=== PATIENT | male | born 1950 | race Caucasian/White ===

== ENCOUNTER → 2017-04-26 10:37 | Outpatient (CLI) | payer MEDICARE, SELFPAY ==
[2017-04-26 11:10] LABS: Basophils # 0.1 K/mm3 (0-0.2); Basophils % 0.8 % (0.1-2.0); Eosinophils # 0.2 K/mm3 (0.0-0.4); Eosinophils % 2.8 % (0.1-12.0); Hematocrit 46.7 % (42.0-52.0); Hemoglobin 15.1 g/dL (14.1-18.0); Lymphocytes # 2.2 K/mm3 (0.7-4.5); Lymphocytes % 30.8 K/mm3 (10-50); Mean Corpuscular HGB Conc 32.3 g/dL (31.8-35.4); Mean Corpuscular Hemoglobin 29.9 pg (27.0-31.2); Mean Corpuscular Volume 92.5 fl (80-94); Mean Platelet Volume 7.2 fl (7.4-10.4); Monocytes # 0.4 K/mm3 (0.1-1.0); Monocytes % 5.7 % (1.7-9.3); Neutrophils # 4.3 K/mm3 (1.8-7.8); Neutrophils % 59.9 % (37.0-80.0); Platelet Count 256 K/mm3 (142-424); Red Blood Count 5.05 M/mm3 (4.60-6.20); Red Cell Distribution Width 12.9 % (11.5-17.5); White Blood Count 7.2 K/mm3 (4.8-10.8)
[2017-04-26 12:05] LABS: Alanine Aminotransferase 27 U/L (12-78); Albumin/Globulin Ratio 1.4 (1.1-1.8); Alkaline Phosphatase 93 U/L (46-116); Aspartate Amino Transferase 19 U/L (15-37); Bilirubin,Total 0.2 mg/dL (0.2-1.0); Blood Urea Nitrogen 14 mg/dL (7-18); Calcium 9.1 mg/dL (8.5-10.1); Carbon Dioxide 26 mmol/L (21.0-32.0); Chloride 104 mmol/L (98-107); Chol/HDL Ratio 4.8 (1-3.5); Cholesterol 133 mg/dL (140-200); Estimated Glomerular Filt Rate 67 ml/min (>60); GFR (African American) 82 ML/MIN (>60); Globulin 2.8 gm/dl (1.3-3.2); Glucose 177 mg/dL (74-106); HDL Cholesterol 28 mg/dL (27-67); LDL Cholesterol 49 mg/dL (0-130); Sodium 140 mmol/L (136-145); Total Protein,Serum 6.8 gm/dL (6.4-8.2); Triglycerides 282 mg/dL (30-200); VLDL Cholesterol 56 mg/dL (0-40)
[2017-04-26 12:07] LABS: Hemoglobin A1C 8.5 % (0.0-7.0)
== END ==
PROVIDERS: PCP Internal Medicine Adolescent Medicine; Visit Provider Internal Medicine Adolescent Medicine
DX: I25.10 Atherosclerotic heart disease of native coronary artery without angina pectoris (principal); E11.65 Type 2 diabetes mellitus with hyperglycemia; E78.5 Hyperlipidemia, unspecified
CPT/HCPCS: 36415; 80053; 80061; 83036; 85025

== ENCOUNTER → 2017-07-26 11:10 | Outpatient (CLI) | payer MEDICARE, SELFPAY ==
[2017-07-26 11:41] LABS: Basophils # 0.1 K/mm3 (0-0.2); Basophils % 0.8 % (0.1-2.0); Eosinophils # 0.2 K/mm3 (0.0-0.4); Hematocrit 51.3 % (42.0-52.0); Hemoglobin 16.7 g/dL (14.1-18.0); Lymphocytes % 35.3 K/mm3 (10-50); Mean Corpuscular HGB Conc 32.5 g/dL (31.8-35.4); Mean Corpuscular Hemoglobin 30.7 pg (27.0-31.2); Mean Corpuscular Volume 94.5 fl (80-94); Mean Platelet Volume 7.2 fl (7.4-10.4); Monocytes # 0.3 K/mm3 (0.1-1.0); Monocytes % 5.9 % (1.7-9.3); Platelet Count 234 K/mm3 (142-424); Red Blood Count 5.43 M/mm3 (4.60-6.20); Red Cell Distribution Width 12.8 % (11.5-17.5); White Blood Count 5.6 K/mm3 (4.8-10.8)
[2017-07-26 13:51] LABS: Alanine Aminotransferase 32 U/L (12-78); Albumin Level 4.1 gm/dL (3.4-5.0); Albumin/Globulin Ratio 1.4 (1.1-1.8); Alkaline Phosphatase 79 U/L (46-116); Anion Gap 14.3 mEq/L (5-15); Aspartate Amino Transferase 18 U/L (15-37); Bilirubin,Total 0.2 mg/dL (0.2-1.0); Blood Urea Nitrogen 15 mg/dL (7-18); Calcium 9.9 mg/dL (8.5-10.1); Carbon Dioxide 28 mmol/L (21.0-32.0); Chloride 104 mmol/L (98-107); Chol/HDL Ratio 5.1 (1-3.5); Cholesterol 144 mg/dL (140-200); Creatinine,Serum 1.11 mg/dL (0.70-1.30); Estimated Glomerular Filt Rate 67 ml/min (>60); GFR (African American) 81 ML/MIN (>60); Glucose 204 mg/dL (74-106); HDL Cholesterol 28 mg/dL (27-67); LDL Cholesterol 66 mg/dL (0-130); Potassium 4.3 mmoL/L (3.5-5.1); Sodium 142 mmol/L (136-145); Total Protein,Serum 7.1 gm/dL (6.4-8.2); Triglycerides 251 mg/dL (30-200); VLDL Cholesterol 50 mg/dL (0-40)
== END ==
PROVIDERS: Visit Provider Internal Medicine Adolescent Medicine
DX: E11.65 Type 2 diabetes mellitus with hyperglycemia (principal); E78.5 Hyperlipidemia, unspecified; I48.1 Persistent atrial fibrillation; D64.9 Anemia, unspecified
CPT/HCPCS: 36415; 80053; 80061; 83036; 84443; 85025

== ENCOUNTER → 2018-06-06 10:04 | Outpatient (CLI) | payer MEDICARE, SELFPAY ==
--- NOTE | 2018-06-06 10:12 | CT_ITS ---
CT angio abdomen/femoral INDICATION: ITS.REASON: INTERMITTANT CLAUDICATION, ARTHEROSLEROSIS ORDERING PHYSICIAN: Augustin Salcido MD PATIENT AGE: 67 years COMPARISON: None TECHNIQUE: Axial images are obtained following the intravenous administration of 120 mL's of Optiray 350. Sagittal and coronal reformatted images are reviewed as well. All CT scans at the facility use one or more dose reduction, viz: automated exposure control, ma/kV adjustment per patient size (including targeted exams where dose is matched to indication, i.e. head), or iterative reconstruction technique. FINDINGS: Angiographic findings: Abdomen: Atheromatous changes are present involving the aorta and its branches. There is mild fusiform dilatation of the infrarenal abdominal aorta at 2.9 x 2.8 cm. There is a common origin of the celiac and superior mesenteric artery with atheromatous changes proximally but no significant stenosis scattered atheromatous changes are present in the SMA and its branches. LIZ is patent. Pelvis: Atheromatous changes of the aortic bifurcation with calcification involving the common, external, and internal iliacs. There is 50% stenosis of the proximal right common iliac. There is 40% stenosis of the mid to distal left common iliac. There is 90% stenosis of the proximal aspect of the left external iliac vessel small bowel distal to this region with another area of 75-80% stenosis of the distal left external iliac. Lower extremity runoff: Right lower extremity: Extensive atheromatous plaque involves the superficial femoral arteries bilaterally with severe stenosis of the mid right SFA at 90%. High-grade segmental stenosis involves multiple areas in the distal SFA on the right. Extensive atheromatous changes involving the right popliteal and trifurcation vessels. It is not possible to determine the degree of the multiple stenoses due to the calcific plaque in the small nature of the vessel. The trifurcation vessels are not [address] radiology patient to the mid to proximal calf. Left lower extremity runoff: Severe atheromatous changes involving the left common femoral artery, profunda femoris, and superficial femoral artery. Extensive calcific atheromatous changes involve the superficial femoral artery with innumerable segmental stenoses some of which are up to 90% or greater also involving the popliteal artery and trifurcation vessels. The left posterior tibial is patent to the ankle. Anterior tibial and peroneal arteries are not patent to the ankle. The peroneal artery is patent to the mid calf. Nonvascular findings: There is a horseshoe kidney. No hydronephrosis.. No acute findings in the abdomen or pelvis are evident IMPRESSION: 1. Mild fusiform infrarenal abdominal aortic aneurysm 2.9 x 2.8 cm. 2. Extensive atheromatous changes involving the pelvis and bilateral lower extremities with numerous segmental areas of stenoses 90% or greater as detailed above.
== END ==
PROVIDERS: PCP Internal Medicine Adolescent Medicine; Visit Provider Internal Medicine Adolescent Medicine
DX: I70.213 Atherosclerosis of native arteries of extremities with intermittent claudication, bilateral legs (principal)
CPT/HCPCS: 75635; Q9967